=== PATIENT | female | born 1940 | race Caucasian/White ===

== ENCOUNTER 2017-07-19 09:55 | Day surgery (SDC) | payer OTHER, BC ==
[~2017-07-19] VITALS: Ht 152.4 cm; Wt 62.1 kg
[~2017-07-19 09:55] MED LIST: CAL-CITRATE PL1 EACH PO; CRESTOR20 MG PO; NEURONTIN100 MG PO; TRIAMTERENE-HC1 EAC1 PO; VITAMIN D22000 UNIT PO
== END 2017-07-19 11:43 | disposition home or self-care (01) ==
LOC: PAIN 09:55 → SDC 10:30 → PAIN 11:43
DX: M53.3 Sacrococcygeal disorders, not elsewhere classified (principal); M46.1 Sacroiliitis, not elsewhere classified; M54.16 Radiculopathy, lumbar region; M88.9 Osteitis deformans of unspecified bone; I10 Essential (primary) hypertension; E78.5 Hyperlipidemia, unspecified; Z85.828 Personal history of other malignant neoplasm of skin
CPT/HCPCS: J1030; J2250; S0020